=== PATIENT | female | born 2000 | race Two or more races ===

== ENCOUNTER 2021-08-08 18:40 | Emergency (ER) | payer MEDICAID, OTHER ==
[~2021-08-08] VITALS: Ht 154.9 cm; Wt 33.6 kg
[~2021-08-08 18:40] MED LIST: [UNRECOGNIZED DRUG - CODE]
[2021-08-08] MEDS ORDERED: FAMOTIDINE (10MG/ML) 2ML VL IV ONE (20:00)
[2021-08-08] MEDS ORDERED: ONDANSETRON HCL 4 MG/2 ML VIAL IV ONE (20:00)
[2021-08-08] MEDS ORDERED: SODIUM CHLORIDE 0.9% 1,000 ML IVB ONE (20:00)
[2021-08-08 20:41] LABS: Basophils # (auto) 0 10 ^3/uL (0-0.2); Basophils % (auto) 0.5 % (0.0-2.0); Eosinophils # (auto) 0 10 ^3/uL (0-0.8); Eosinophils % (auto) 0.3 % (0.0-7.0); Hematocrit 41.1 % (36.0-46.0); Hemoglobin 14.4 g/dL (12.2-16.2); Lymphocytes # (auto) 1.2 10 ^3/uL (0.4-5.4); Lymphocytes % (auto) 16.1 % (10.0-50.0); Mean Corpuscular Hemoglobin 33.1 pg (28.0-32.0); Mean Corpuscular Volume 94.6 fL (80.0-100.0); Monocytes # (auto) 0.5 10 ^3/uL (0-1.3); Monocytes % (auto) 6.3 % (0.0-12.0); Neutrophils # (auto) 5.8 10 ^3/uL (1.6-8.6); Neutrophils % (auto) 76.8 % (37.0-80.0); Red Blood Cells 4.35 10^6/uL (4.0-5.20); Red Cell Distribution Width 12.4 % (11.8-14.3); White Blood Cell 7.6 10^3/uL (4.4-10.8)
[2021-08-08 20:58] LABS: Albumin 3.8 g/dL (3.4-5.0); BUN/Creatinine Ratio 19.6; Magnesium 2.3 mg/dL (1.6-2.6); Potassium 3.7 mmol/L (3.5-5.1)
[2021-08-08 21:00] LABS: Bilirubin, Total 0.3 mg/dL (0.2-1.0); Total Protein 7.9 g/dL (6.4-8.2)
[2021-08-08] MEDS ORDERED: ONDA-155 PO (23:44)
[2021-08-08] MEDS ORDERED: POLYPOW59 PO (23:44)
[2021-08-08] MEDS ORDERED: FAMO-12 PO (23:44)
[2021-08-09 00:53] LABS: Urine Bacteria NONE SEEN /hpf (None Seen); Urine Blood Negative /uL (Negative); Urine Mucus FEW (None Seen); Urine Specific Gravity 1.022 (1.001-1.035); Urine WBC 13 /hpf (0 - 5)
[2021-08-09 01:10] VITALS: BP 116/82
== END 2021-08-09 01:56 | disposition home or self-care (01) ==
LOC: ER 18:47
DX: K30 Functional dyspepsia (principal); F50.9 Eating disorder, unspecified
CPT/HCPCS: 36415; 80053; 81001; 83690; 83735; 85025; 96374; 96375; 99284; J2405; J3490; J7030